=== PATIENT | female | born 1985 | race Caucasian/White ===

== ENCOUNTER 2018-12-18 17:59 | Emergency (ER) | payer MEDICAID ==
[2018-12-18 18:38] VITALS: BP 130/82
--- NOTE | 2018-12-18 19:25 | UC ---
Lower Extremity/Ankle HPI - HPI Summary HPI Summary: PATIENT STEPPED ON UNEVEN PART OF THE GROUND 2 DAYS AGO AND TWISTED HER RIGHT FOOT. 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 PAIN IS PERSISTENT. - History of Current Complaint Chief Complaint: UCLowerExtremity Stated Complaint: ANKLE INJURY Time Seen by Provider: 12/18/18 18:56 Hx Obtained From: Patient Hx Last Menstrual Period: 12/13/18 Onset/Duration: Sudden Onset, Lasting Days, Still Present Severity Initially: Moderate Severity Currently: Moderate Pain Intensity: 8 Pain Scale Used: 0-10 Numeric Aggravating Factor(s): Standing, Ambulation Alleviating Factor(s): Rest, Elevation Able to Bear Weight: Yes - WITH PAIN - Allergies/Home Medications Allergies/Adverse Reactions: Allergies Allergy/AdvReac Type Severity Reaction Status Date / Time No Known Allergies Allergy Verified 12/18/18 18:38 Home Medications: Home Medications Desog-E.estradiol/E.estradiol [Kariva 28 Day Tablet] 1 tab PO DAILY WITH MEAL [History Confirmed 12/18/18] Propranolol HCl 40 mg PO DAILY WITH MEAL 12/18/18 [History Confirmed 12/18/18] PMH/Surg Hx/FS Hx/Imm Hx Neurological History: Migraine - Surgical History Surgical History: Yes Surgery Procedure, Year, and Place: - Family History Known Family History: Positive: Diabetes - grandparents - Social History Alcohol Use: Occasionally Substance Use Type: None Smoking Status (MU): Never Smoked Tobacco - Immunization History Most Recent Influenza Vaccination: 01/29/13 Most Recent Tetanus Shot: 11/21/12 Most Recent Pneumonia Vaccination: none Review of Systems All Other Systems Reviewed And Are Negative: Yes Constitutional: Positive: Negative Skin: Positive: Negative Respiratory: Positive: Negative Cardiovascular: Positive: Negative Gastrointestinal: Positive: Negative Musculoskeletal: Positive: Arthralgia, Decreased ROM Physical Exam Triage Information Reviewed: Yes Appearance: Well-Appearing, No Pain Distress, Well-Nourished Vital Signs: Initial Vital Signs Temp 98.6 F 12/18/18 18:34 Pulse 59 12/18/18 18:34 Resp 18 12/18/18 18:34 BP 130/82 12/18/18 18:34 Pulse Ox 100 12/18/18 18:34 Vital Signs Reviewed: Yes Eyes: Positive: Conjunctiva Clear ENT: Positive: Hearing grossly normal Neck: Positive: Supple Respiratory: Positive: No respiratory distress, No accessory muscle use Cardiovascular: Positive: Pulses Normal Abdomen Description: Positive: Soft Musculoskeletal: Positive: No Edema, ROM Limited @ - RIGHT ANKLE, Other: - TTP RIGHT FOOT LATERALLY. ACHILLES INTACT Neurological: Positive: Alert Psychological: Positive: Age Appropriate Behavior Skin: Negative: Rashes Diagnostics - Radiology RIGHT FOOT XRAYS Radiology Interpretation Completed By: ED Physician Summary of Radiographic Findings: NO ACUTE BONY INJURY Lower Extremity Course/Dx - Course Course Of Treatment: RIGHT FOOT X-RAY UNREMARKABLE ON MY INITIAL INTERPRETATION. OFFICIAL RADIOLOGY READ IS PENDING. 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 ALSO ENCOURAGED HER TO REST AND ELEVATE HER FOOT MUCH POSSIBLE. OTC MEDICATIONS FOR DISCOMFORT. IF SHE IS NOT IMPROVING OVER THE NEXT WEEK OR SO SHE IS TO FOLLOW-UP WITH HER PCP OR ORTHOPEDICS. - Differential Dx/Diagnosis Provider Diagnosis: Right foot sprain Discharge ED - Sign-Out/Discharge Documenting (check all that apply): Patient Departure All imaging exams completed and their final reports reviewed: No - Discharge Plan Condition: Stable Disposition: HOME Patient Education Materials: Foot Sprain (ED) Referrals: Beni Thorpe MD [Primary Care Provider] - If Needed Elena Judd MD [Medical Doctor] - If Needed Additional Instructions: FOOT X-RAY TODAY UNREMARKABLE ON MY INITIAL INTERPRETATION. WE WILL CALL YOU TOMORROW IF THE RADIOLOGY READ DIFFERS. USE THE LACEY WRAP AND THE CAM BOOT NEEDED FOR MOBILITY AND COMFORT. REST, ICE, COMPRESS, ELEVATE. OTC MEDS NEEDED FOR PAIN. YOUR SYMPTOMS SHOULD IMPROVE OVER THE NEXT WEEK OR SO. FOLLOW- UP WITH YOUR PCP OR ORTHOPEDICS IF YOU DO NOT IMPROVE EXPECTED. - Billing Disposition and Condition Condition: STABLE Disposition: Home
--- NOTE | 2018-12-19 07:53 | UC ---
- Progress Note Progress Note: wet read correct Course/Dx - Diagnoses Provider Diagnoses: Right foot sprain Discharge ED - Sign-Out/Discharge Documenting (check all that apply): Post-Discharge Follow Up All imaging exams completed and their final reports reviewed: Yes - Discharge Plan Condition: Stable Disposition: HOME Patient Education Materials: Foot Sprain (ED) Referrals: Beni Thorpe MD [Primary Care Provider] - If Needed Elena Judd MD [Medical Doctor] - If Needed Additional Instructions: FOOT X-RAY TODAY UNREMARKABLE ON MY INITIAL INTERPRETATION. WE WILL CALL YOU TOMORROW IF THE RADIOLOGY READ DIFFERS. USE THE LACEY WRAP AND THE CAM BOOT NEEDED FOR MOBILITY AND COMFORT. REST, ICE, COMPRESS, ELEVATE. OTC MEDS NEEDED FOR PAIN. YOUR SYMPTOMS SHOULD IMPROVE OVER THE NEXT WEEK OR SO. FOLLOW- UP WITH YOUR PCP OR ORTHOPEDICS IF YOU DO NOT IMPROVE EXPECTED. - Billing Disposition and Condition Condition: STABLE Disposition: Home
== END 2018-12-18 19:38 | disposition home or self-care (01) ==
LOC: UCEAST 17:59
DX: S93.601A Unspecified sprain of right foot, initial encounter (principal); X50.9XXA Other and unspecified overexertion or strenuous movements or postures, initial encounter; Y92.219 Unspecified school as the place of occurrence of the external cause
CPT/HCPCS: 99213; G0463